=== PATIENT | male | born 1940 | race African-American/Black ===

== ENCOUNTER 2017-08-12 22:53 | Emergency (ER) | payer MEDICARE ==
[~2017-08-12] VITALS: Ht 170.2 cm; Wt 123.0 kg
[2017-08-13] MEDS ORDERED: NA PHOS,M-B/NA PHOS,DI-BA ENEMA 118ML PR ONE (03:15)
[2017-08-13 03:52] VITALS: BP 174/109
== END 2017-08-13 04:42 | disposition home or self-care (01) ==
LOC: ER 22:53
DX: K59.00 Constipation, unspecified (principal); M54.5 Low back pain; R03.0 Elevated blood-pressure reading, without diagnosis of hypertension
CPT/HCPCS: 99283